=== PATIENT | female | born 1990 | race Asian ===

== ENCOUNTER 2023-09-20 05:41 | Inpatient (IN) ==
--- NOTE | 2023-09-15 11:48 | Anesthesiology Consultation ---
Date of Service September 15, 2023 Assessment & Plan (1) Encounter for pre-operative examination: Chart Review Chart Review: data entry specialist initiated Previous done due to previous finding of oligohydramnios and failure to progress and had an uncomplicated primary - Will leave BSG day of procedure to OB and anesthesiologist discretion -Infectious Disease screening: Per PAT nursing assessment on 09/15/23. No known infectious disease contacts in past 10 days or current infectious disease symptoms. No recent travel outside the country. History Surgery Operation Date: 09/20/23 07:30 Proposed Procedures p Section (Delivery of Baby Through Abdominal Incision) - Cornelio Ramirez MD, FACOG Height/Weight Height: 5 ft 6 in Weight: 144.242 kg Allergies Allergy/AdvReac Type Severity Reaction Status Date / Time Sulfa (Sulfonamide Allergy Severe Hives Verified 09/15/23 11:22 Antibiotics) Medications Home Medications Medication Instructions Recorded Confirmed Last Taken acetone (urine) test (Ketone Urine #50 ea 06/04/23 09/10/23 Unknown Test strips) blood sugar diagnostic (OneTouch #100 ea 06/04/23 09/10/23 Unknown Verio test strips) blood-glucose meter (OneTouch #1 ea 06/04/23 09/10/23 Unknown Verio Reflect Meter) blood-glucose sensor (Dexcom G7 #3 ea 06/04/23 09/10/23 Unknown Sensor device) lancets 33 gauge (OneTouch Delica #100 ea 06/04/23 09/10/23 Unknown Plus Lancet) pen needle, diabetic 32 gauge x #150 ea 06/18/23 09/10/23 Unknown /32" (BD Ultra-Fine Deyanira Pen Needle) insulin lispro 100 unit/mL See Rx Instructions subcut TID #15 09/14/23 09/15/23 Unknown subcutaneous pen (Humalog KwikPen mL (U-100) Insulin) Lactobacillus acidophilus 250 1,000 mmu cells PO DAILY 09/15/23 09/15/23 Unknown million cell capsule (Probiotic Acidophilus) docusate sodium 100 mg capsule 100 mg PO QAM 09/15/23 09/15/23 Unknown (Stool Softener) insulin NPH isoph U-100 human 100 15 unit subcut BID 09/15/23 09/15/23 Unknown unit/mL (3 mL) subcutaneous pen (Humulin N NPH U-100 Insulin KwikPen) vit no.133-ferrous 1 tab PO QAM 09/15/23 09/15/23 Unknown fumarate 28 mg-folic acid 800 mcg tablet () Past Medical History Medical History Gestational diabetes mellitus History of COVID-19 early 2022: cold symptoms Past Family History Family History Mother Diabetes Father Diabetes Other No family history of adverse response to anesthesia Denies family history of Ovarian cancer Breast cancer Colorectal cancer Past Surgical History Surgical History S/P section S/P tonsillectomy Status post ORIF of fracture of ankle left Social History Smoking Status: Never smoker Do You Dip or Chew Tobacco: No Hx Alcohol Use: No Hx Substance Use: No Lab Results Anesthesia Preop Results Results Anesthesia Widget: WBC 8.21 K/ul (4.8-10.8) 07/30/23 Hgb 12.3 g/dl (12.0-16.0) 07/30/23 Hct 38.5 % (37.0-47.0) 07/30/23 Plt 206 K/uL (130-400) 07/30/23
[2023-09-20] MEDS: LACTATED RINGER'S 1,000 ML IV SCH (06:04)
[2023-09-20 06:20] LABS: Basophils # (auto) 0.05 K/uL (0.00-0.20); Basophils % (auto) 0.7 %; Eosinophils # (auto) 0.14 K/uL (0.00-0.50); Eosinophils % (auto) 1.8 %; Hematocrit (blood only) 39.5 % (37.0-47.0); Hemoglobin 12.7 g/dl (12.0-16.0); Immature Granulocytes # (auto) 0.03 K/uL (0.01-0.20); Immature Granulocytes % (auto) 0.4 %; Lymphocytes % (auto) 31.7 %; Mean Corpuscular Hemoglobin 27.7 pg (25.0-34.0); Mean Corpuscular Hgb Conc 32.2 g/dL (32.0-36.0); Mean Corpuscular Volume 86.2 fL (80.0-100.0); Mean Platelet Volume 11.7 fL (9.4-12.4); Monocytes # (auto) 0.33 K/uL (0.11-0.59); Monocytes % (auto) 4.4 %; Neutrophils # (auto) 4.63 K/uL (1.40-6.50); Platelet Count 179 K/uL (130-400); RDW Coefficient of Variation 14.6 % (11.5-14.5); RDW Standard Deviation 45.9 fL (36.4-46.3); Red Blood Count 4.58 M/uL (4.20-5.40); White Blood Count 7.58 K/ul (4.8-10.8)
[2023-09-20] MEDS ORDERED: SODIUM CHLORIDE 0.9% 250 ML IV PRN (06:36)
[2023-09-20] MEDS ORDERED: OXYTOCIN 10 UNITS/ML VIAL ONE (06:41)
[2023-09-20] MEDS ORDERED: PHENYLEPHRINE 100MCG/ML 10ML SYR IV ONE (06:41)
[2023-09-20] MEDS ORDERED: fentaNYL citrate PF 100 MCG/2 ML VIAL ONE (06:42)
[2023-09-20] MEDS ORDERED: MoRPHine SULFATE PF 1 MG/ML 10 ML AMP/VIAL ONE (06:42)
--- NOTE | 2023-09-20 07:08 | History & Physical Report ---
Date of Service September 20, 2023 Assessment & Plan (1) Encounter for pre-operative examination: Plan: NICHOLE Calculator Estimated Delivery Date Method Current WG Current Estimate 09/24/23 Ultrasound #1 38w 4d Other Estimates 09/14/23 LMP (Certain) 40w 0d LMP: 12/08/22 : 2 Full term: 1 Premature: 0 Total Number of Induced Abortions: 0 Total Number of Spontaneous Abortions: 0 Ectopics: 0 Multiple births: 0 Number of Living Children: 1 and Delivery Plans GDM on insulin *Wkly NSTs @32wks and Twice wkly @36wks *Serial growth US @28wks *Deliver by EDC Previous *LTCS, op report on chart AMA Weekly NST's @ 36 weeks BMI 40 and Higher at Beginning of *Growth US at 32wks *NSTs at 34wks *BMI 40 offer [place] anatomy [place] [facility] [place]BMI 40 or greater offer delivery by [facility] Repeat section. The patient was counseled to the nature of the procedure including alternatives such as labor. Risks were discussed including bleeding infection injury to bowel bladder ureter vessels and even baby. The risks of internal organ injury were discussed as being higher with prior sections. Deep Vein Thrombosis, pulmonary embolus and breakdown of the incision discussed. Deep vein thrombosis pulmonary embolus hernia and failure of the incision to heal were discussed Patient verbalized understanding of this and was given ample time to ask questions Admission and Anticipated Discharge Date Admission Date: September 20, 2023 History of Present Illness Primary Care Provider: Sawyer Nix MD repeat c/s Allergies Allergy/AdvReac Type Severity Reaction Status Date / Time Sulfa (Sulfonamide Allergy Severe Hives Verified 09/20/23 06:06 Antibiotics) Home Medications Medication Instructions Recorded Confirmed Type acetone (urine) test (Ketone Urine #50 ea 06/04/23 09/10/23 Rx Test strips) blood sugar diagnostic (OneTouch #100 ea 06/04/23 09/10/23 Rx Verio test strips) blood-glucose meter (OneTouch #1 ea 06/04/23 09/10/23 Rx Verio Reflect Meter) blood-glucose sensor (Dexcom G7 #3 ea 06/04/23 09/10/23 Rx Sensor device) lancets 33 gauge (OneTouch Delica #100 ea 06/04/23 09/10/23 Rx Plus Lancet) pen needle, diabetic 32 gauge x #150 ea 06/18/23 09/10/23 Rx 5/32" (BD Ultra-Fine Deyanira Pen Needle) Lactobacillus acidophilus 250 1,000 mmu cells PO DAILY 09/15/23 09/15/23 History million cell capsule (Probiotic Acidophilus) docusate sodium 100 mg capsule 100 mg PO QAM 09/15/23 09/15/23 History (Stool Softener) insulin NPH isoph U-100 human 100 15 unit subcut BID 09/15/23 09/15/23 History unit/mL (3 mL) subcutaneous pen (Humulin N NPH U-100 Insulin KwikPen) vit no.133-ferrous 1 tab PO QAM 09/15/23 09/15/23 History fumarate 28 mg-folic acid 800 mcg tablet () insulin lispro 100 unit/mL See Rx Instructions subcut TID #15 09/16/23 Rx subcutaneous pen (Humalog KwikPen mL (U-100) Insulin) Patient History Medical History Gestational diabetes mellitus History of COVID-19 early 2022: cold symptoms Surgical History S/P section S/P tonsillectomy Status post ORIF of fracture of ankle left Family History Mother Diabetes Father Diabetes Other No family history of adverse response to anesthesia Denies family history of Ovarian cancer Breast cancer Colorectal cancer Social History (Updated 01/27/23 @ 13:14 by Imelda Welsh) Smoking Status: Never smoker Second Hand Exposure: No; Do You Dip or Chew Tobacco: No; Tobacco Cessation Education Requested by Patient: No Hx Alcohol Use: No Hx Substance Use: No Preferred Language: Albanian Communication Ability: Effective Ink Grinder Required: No Beliefs That Will Affect Care: None marital status: marital status details: Roly Friedmannimo (34) [phone] Current Living Situation: Spouse and Family Current Living Situation Comment: 3 year old son "Juan" and current occupational status: employed current occupation: Batching Operator Other Information That Helps Us Care for You: No Feels Safe at Home: Yes Safety Concerns: Feels Safe At This Time Assistive Devices: None Physical Exam Constitutional: WD/WN, vitals as above well developed and well nourished Respiratory: normal respiratory effort, lungs clear to auscultation normal respiratory effort Cardiovascular: RRR, no murmur, no edema Gastrointestinal (Abdomen): normal bowel sounds, soft, nontender, no hepatosplenomegaly Results & Data Vital Signs (Past 12 Hours) Vital Signs Temp Pulse Resp BP 09/20/23 07:02 65 129/83 09/20/23 06:09 98.6 F 68 18 119/82 09/20/23 06:03 98.6 F 68 18 119/82 Coding Level of Care Code None Diagnoses Encounter for pre-operative examination Z01.818
[2023-09-20] MEDS ORDERED: ePHEDrine sulfate 50 MG/ML AMP IV PRN (07:13)
[2023-09-20] MEDS ORDERED: MoRPHine SULFATE PF 1 MG/ML 10 ML AMP/VIAL INT SPINAL ONE (07:13)
[2023-09-20] MEDS ORDERED: ONDANSETRON INJ 2 MG/ML 2 ML VIAL IV PRN (07:13)
[2023-09-20] MEDS ORDERED: LACTATED RINGER'S 500 ML IV PRN (07:13)
[2023-09-20] MEDS ORDERED: diphenhydrAMINE 50 MG/ML VIAL IV PRN (07:13)
[2023-09-20] MEDS ORDERED: NALOXONE HCL 1 MG in SODIUM CHLORIDE 0.9% 1,000 ML IV PRN (07:13)
[2023-09-20] MEDS ORDERED: NALOXONE HCL 0.08 MG in SYRINGE 1.8 ML IV PRN (07:13)
[2023-09-20] MEDS ORDERED: MoRPHine SULFATE 2 MG/ML CARP IV PRN (07:13)
[2023-09-20] MEDS ORDERED: HYDROmorphone INJ 0.5 MG/0.5 ML SYR IV PRN (07:13)
[2023-09-20] MEDS ORDERED: NALBUPHINE HCL 5 MG in SYRINGE 0 ML IV PRN (07:13)
[2023-09-20] MEDS ORDERED: NALOXONE HCL 0.4 MG/1 ML VIAL/CARP IV PRN (07:13)
[2023-09-20] MEDS ORDERED: DC INTRASPINAL MORPHINE SCH (07:15)
[2023-09-20] MEDS ORDERED: SODIUM CHLORIDE 0.9% 1,000 ML IV SCH (07:15)
[2023-09-20] MEDS ORDERED: NO NARCOTICS OR SEDATIVES SCH (07:15)
[2023-09-20] MEDS: CITRIC ACID/SODIUM CITRATE 15 ML UDC PO SCH (07:35)
[2023-09-20] MEDS: DEXTROSE 50% 50 ML SYRINGE IV ONE ×2 (07:36→09:42)
[2023-09-20] MEDS: ceFAZolin 3,000 MG in DEXTROSE 5% 50 ML IV SCH (07:38)
[2023-09-20] MEDS ORDERED: ePHEDrine sulfate 50 MG/5 ML SYR ONE (08:25)
[2023-09-20] MEDS ORDERED: ONDANSETRON INJ 2 MG/ML 2 ML VIAL ONE (08:44)
--- NOTE | 2023-09-20 09:15 | Operative Report ---
PG Post Operative Report Pre & Post Diagnosis Operation Date: 09/20/23 07:30 Repeat section at 39 completed weeks gestational diabetes on insulin I identified the patient and participated in the time-out.: Yes Procedure Operation Date: 09/20/23 07:30 Low segment transverse section Surgeon Cornelio Ramirez MD, FACOG [employer] Sergeant Dr. Torres Estimated Blood Loss 600 Findings Consistent with Post-Op Diagnosis Specimens Cord blood Cord gases Description of Procedure Regional anesthetic had been given by anesthesia patient was prepped and draped with a leftward tilt preoperative antibiotics had been given in appropriate timing by anesthesiology. Once the prep was allowed to fully dry timeout was performed. Pickups with teeth were used to test the incision area was found to be adequate for incision as the patient did not feel sharp pain. Scalpel was used to make a Pfannenstiel incision on the lower abdomen. We then cut through the subcutaneous fat down to the level of the anterior rectus sheath fascia this was cut in the midline and then extended laterally with the curved Rivera scissors. At this stage we then placed 2 Kevin clamps on the anterior aspect of the fascia. Using the curved Rivera's we are able to dissect the fascia superiorly away from the rectus muscles. Care was taken to maintain hemostasis. Kevin clamps were then placed to the inferior aspect of the anterior sheath of the fascia. Fascia was then dissected away from the rectus muscles inferiorly towards the pubic bone. A Kevin was then placed in the midline both inferiorly and superiorly. This was to allow exposure by retraction rectus muscles were in the midline with were then able to cut through the peritoneum and then enter the peritoneal cavity. Opening was enlarged to allow exposure of the peritoneal cavity both superiorly and inferiorly. Some minimal adhesions of the omentum were dissected away with Metzenbaums to the bladder, once adequate space was obtained a bladder retractor was placed to expose the lower segment Metzenbaums were used to dissect the bladder flap inferiorly away from the uterus. This was done sharply bladder retractor was then repositioned to expose the lower segment of the uterus Fresh scalpel was used to make a low transverse incision on the uterus. Uterus was then entered bluntly with the operators finger, membranes ruptured and the opening was enlarged using the operators fingers bluntly pulling superiorly and inferiorly to allow exposure. Note thin meconium and loose nuchal cord which was passed over the baby's head Baby was delivered by first flexion of the head elevation of the head out of the pelvis and then pressure by the assistant property manager on the maternal abdomen. Baby's head was then delivered mouth and then nares were suctioned and then using gentle traction the baby was fully delivered. Live vigorous . Fluid was clear cord clamped and cut cord gases obtained cord blood obtained baby handed to pediatrics. Placenta removed was removed with traction we ensure the entire placenta was removed with a moist lap sponge into the uterus Uterus was then exteriorized. IV Pitocin had been started by anesthesia tone improved there were no extensions the uterus was then closed using 0 Monocryl in a 2 layer closure the first layer closed in a running locked fashion from left to right and then a second closure from left to right in a running nonlocked fashion. At this stage hemostasis was excellent. Uterus was placed back in the peritoneal cavity with suction irrigation out and inspection of the uterus at this stage revealed excellent hemostasis Retractors were removed urine color was clear at this stage of the case we inspected the rectus muscles they were hemostatic fascia was closed with 0 Vicryl subcutaneous fat was irrigated and closed with 3-0 Vicryl skin closed with 4-0 subcuticular Monocryl jacob dressing was applied Findings vigorous male infant normal uterus uterine cavity and adnexa I attest to the content of the Intraoperative Record and any orders documented therein. Any exceptions are noted below. OB Procedure Charges 91234
[2023-09-20] MEDS ORDERED: SENNA 8.6 MG TAB PO PRN (09:26)
[2023-09-20] MEDS ORDERED: MAGNESIUM HYDROXIDE SUSP 30 ML UDC PO PRN (09:26)
[2023-09-20] MEDS ORDERED: BENZOCAINE 20% SPRY 85 APPLN/85 GM CAN EXT PRN (09:26)
[2023-09-20] MEDS ORDERED: HYDROCORTISONE ACETATE 25 MG SUPP PR PRN (09:26)
[2023-09-20] MEDS ORDERED: DIPHTHER/TETAN/PERTUS Vaccine (Tdap, Adol/Adult) 0.5mL IM ONE (09:26)
[2023-09-20] MEDS ORDERED: LACTATED RINGER'S 1,000 ML IV SCH (09:26)
[2023-09-20] MEDS: OXYTOCIN 20 UNITS/LR 1,002 ML IV SCH (11:00)
--- NOTE | 2023-09-20 12:02 | Anesthesiology Progress Note ---
Date of Service September 20, 2023 Anesthesia Post Procedure Vital Signs Vital Signs: Temp Pulse Pulse Resp BP BP Pulse Ox 09/20/23 11:40 36.4 C L 95 H 16 103/68 99 09/20/23 11:03 16 09/20/23 10:58 66 99/55 L 09/20/23 10:57 66 99 09/20/23 10:53 62 105/58 L 09/20/23 10:52 76 99 09/20/23 10:47 71 99 09/20/23 10:43 76 103/56 L 09/20/23 10:42 76 99 09/20/23 10:37 68 98 09/20/23 10:33 20 09/20/23 10:33 68 108/59 L 09/20/23 10:32 73 97 09/20/23 10:27 64 96 09/20/23 10:24 69 126/55 L 09/20/23 10:22 70 96 09/20/23 10:17 70 95 09/20/23 10:13 78 92/63 L 09/20/23 10:12 79 95 09/20/23 10:07 65 95 09/20/23 10:03 36.5 C 20 09/20/23 10:03 71 100/60 09/20/23 10:02 74 95 09/20/23 09:57 71 94 09/20/23 09:53 16 09/20/23 09:53 70 107/54 L 09/20/23 09:52 64 94 09/20/23 09:47 89 94 09/20/23 09:43 20 09/20/23 09:43 68 108/66 09/20/23 09:42 66 94 09/20/23 09:37 69 94 09/20/23 09:33 18 09/20/23 09:33 150 H 112/60 09/20/23 09:32 77 94 09/20/23 09:27 72 94 09/20/23 09:24 80 113/61 09/20/23 09:23 18 09/20/23 09:22 71 94 09/20/23 09:17 78 95 09/20/23 09:13 18 09/20/23 09:13 82 97/63 L 09/20/23 09:12 76 95 09/20/23 09:07 67 95 09/20/23 09:02 36.4 C L 20 09/20/23 09:02 70 97/71 L 95 09/20/23 07:29 20 09/20/23 07:29 36.6 C 20 09/20/23 07:02 65 129/83 09/20/23 06:09 37.0 C 68 18 119/82 09/20/23 06:03 37.0 C 68 18 119/82 O2 Del Method 09/20/23 11:40 Room Air 09/20/23 11:03 09/20/23 10:58 09/20/23 10:57 09/20/23 10:53 09/20/23 10:52 09/20/23 10:47 09/20/23 10:43 09/20/23 10:42 09/20/23 10:37 09/20/23 10:33 09/20/23 10:33 09/20/23 10:32 09/20/23 10:27 09/20/23 10:24 09/20/23 10:22 09/20/23 10:17 09/20/23 10:13 09/20/23 10:12 09/20/23 10:07 09/20/23 10:03 09/20/23 10:03 09/20/23 10:02 09/20/23 09:57 09/20/23 09:53 09/20/23 09:53 09/20/23 09:52 09/20/23 09:47 09/20/23 09:43 09/20/23 09:43 09/20/23 09:42 09/20/23 09:37 09/20/23 09:33 09/20/23 09:33 09/20/23 09:32 09/20/23 09:27 09/20/23 09:24 09/20/23 09:23 09/20/23 09:22 09/20/23 09:17 09/20/23 09:13 09/20/23 09:13 09/20/23 09:12 09/20/23 09:07 09/20/23 09:02 09/20/23 09:02 09/20/23 07:29 09/20/23 07:29 09/20/23 07:02 09/20/23 06:09 09/20/23 06:03 Transfer of Care Handoff Completed per policy Notes Mental Status: alert / awake / arousable and participated in evaluation Patient Amnestic to Procedure: Yes Nausea / Vomiting: adequately controlled Pain: adequately controlled Airway Patency, RR, SpO2: stable & adequate BP & HR: stable & adequate Hydration State: stable & adequate Neuraxial Anesthesia: was administered and sensory block is resolving Anesthetic Complications: no major complications apparent and Pt Satisfied with anesthetic care
[2023-09-20] MEDS: SIMETHICONE 80 MG CHEW PO SCH (15:11)
[2023-09-20] MEDS: KETOROLAC 30 MG/ML VIAL IV PRN (15:15)
[2023-09-20] MEDS: DOCUSATE SODIUM 100 MG CAP PO SCH (20:21)
[2023-09-21] MEDS ORDERED: PROMETHAZINE HCL 25 MG in SODIUM CHLORIDE 0.9% 50 ML IV PRN (01:15)
[2023-09-21] MEDS ORDERED: ONDANSETRON INJ 2 MG/ML 2 ML VIAL IV PRN (01:15)
[2023-09-21] MEDS ORDERED: KETOROLAC 30 MG/ML VIAL IV PRN (01:15)
[2023-09-21] MEDS ORDERED: diphenhydrAMINE Capsule 25 MG CAP PO PRN (01:15)
[2023-09-21] MEDS ORDERED: diphenhydrAMINE 50 MG/ML VIAL IV PRN (01:15)
[2023-09-21] MEDS: IBUPROFEN 600 MG TAB PO PRN (02:07)
[2023-09-21] MEDS: oxyCODONE/ACETAMINOPHEN 5mg/325mg TAB PO PRN (02:07)
[2023-09-21 06:26] LABS: Basophils # (auto) 0.04 K/uL (0.00-0.20); Basophils % (auto) 0.4 %; Eosinophils # (auto) 0.15 K/uL (0.00-0.50); Eosinophils % (auto) 1.6 %; Hematocrit (blood only) 35.7 % (37.0-47.0); Hemoglobin 11.8 g/dl (12.0-16.0); Immature Granulocytes # (auto) 0.03 K/uL (0.01-0.20); Immature Granulocytes % (auto) 0.3 %; Lymphocytes # (auto) 2.21 K/uL (1.20-3.40); Lymphocytes % (auto) 23.5 %; Mean Corpuscular Hemoglobin 27.8 pg (25.0-34.0); Mean Corpuscular Hgb Conc 33.1 g/dL (32.0-36.0); Mean Platelet Volume 11.4 fL (9.4-12.4); Monocytes # (auto) 0.35 K/uL (0.11-0.59); Monocytes % (auto) 3.7 %; Neutrophils # (auto) 6.63 K/uL (1.40-6.50); Neutrophils % (auto) 70.5 %; Platelet Count 166 K/uL (130-400); RDW Coefficient of Variation 14.8 % (11.5-14.5); RDW Standard Deviation 44.8 fL (36.4-46.3); Red Blood Count 4.25 M/uL (4.20-5.40); White Blood Count 9.41 K/ul (4.8-10.8)
--- NOTE | 2023-09-21 07:37 | Obstetrical Progress Note ---
Date of Service September 21, 2023 Assessment & Plan (1) Encounter for care and examination after delivery: Plan Continue ibuprofen and Percocet as needed for pain management Encourage ambulation Continue work with senior microsoft consultant for Continue care Admission and Anticipated Discharge Date Admission Date: September 20, 2023 Supervising Physician Co-Signing Physician Notes Resident Physician Supervision Note: I interviewed and examined the patient. Discussed with Dr. Dias of resident and agree with findings and plan as documented in the note. Any exceptions or clarifications are listed here: [None] Documented By: Lachelle Torres MD Subjective 30 yo now post day 1 s/p c section on 08/20/2023 was complicated gestational diabetes controlled by insulin Glucose overnight 84 Hgb low this morning at 11.8 Hct 35.7 Rubella immune Rh positive Pain well controlled with ibuprofen and Percocet, ambulating well No flatus, bowl movement, no voiding yet, martinez catheter removed this morning Denies Headache, chest pain, shortness of breath, nausea vomiting Review of Systems Review of Systems: All systems reviewed & are unremarkable except as noted in HPI & below Physical Exam Constitutional: WD/WN, vitals as above no acute distress Respiratory: normal respiratory effort, lungs clear to auscultation Cardiovascular: regular rate and rhythm, no edema Gastrointestinal (Abdomen): normal bowel sounds, soft, nontender, no hepatosplenomegaly Skin: Warm, dry, pink Genitourinary: Uterine fundus firm at umbilicus, incision w/o erythema, bleeding covered with GILSON dressing Results & Data Vital Signs (Past 12 Hours) Vital Signs Temp Pulse Resp BP Pulse Ox O2 Del Method 09/21/23 04:00 36.9 C 69 18 106/71 98 Room Air 09/21/23 01:30 18 99 09/21/23 00:30 20 98 09/20/23 23:19 18 100 09/20/23 23:00 36.6 C 83 20 103/72 100 Room Air 09/20/23 22:30 18 98 09/20/23 21:30 20 100 09/20/23 20:30 20 99 09/20/23 19:25 18 98 09/20/23 19:25 Room Air 09/20/23 19:25 36.9 C 85 18 103/70 100 Room Air
--- NOTE | 2023-09-21 07:41 | Obstetrical Progress Note ---
Date of Service September 21, 2023 Assessment & Plan (1) Encounter for care and examination after delivery: 33 [facility], doing well -Needs to void and pass gas but meeting all other milestones -Rh+/rubella immune/ -f/u 6 weeks for appt, continue routine care Subjective Ambulation: ambulating normally Passing Gas:: No Diet Tolerance:: regular diet Lochia:: Small Feeding Type:: breast feeding Pain well managed with medication, not yet voided Review of Systems Denies fevers, chills, n/v, ANTONIO, CP, SOB Physical Exam Constitutional WD/WN, vitals as above no acute distress Respiratory normal respiratory effort, lungs clear to auscultation Cardiovascular RRR, no murmur, no edema Gastrointestinal (Abdomen) Percussion/Palpation: abdomen soft; abdomen nontender fundus firm at umbilicus and NT. jacob dressing c/d/i Musculoskeletal BLE symmetric, nonerythematous, nontender Results & Data Vital Signs (Past 12 Hours) Vital Signs Temp Pulse Resp BP Pulse Ox O2 Del Method 09/21/23 04:00 98.4 F 69 18 106/71 98 Room Air 09/21/23 01:30 18 99 09/21/23 00:30 20 98 09/20/23 23:19 18 100 09/20/23 23:00 97.9 F 83 20 103/72 100 Room Air 09/20/23 22:30 18 98 09/20/23 21:30 20 100 09/20/23 20:30 20 99
[2023-09-21] MEDS: FERROUS SULFATE 325 MG TAB PO SCH (07:47)
[2023-09-21] MEDS: PRENATAL VITAMIN 1 TAB PO SCH (07:47)
[2023-09-21] MEDS: CALCIUM CARBONATE 500 MG CHEWABLE TAB PO PRN (16:32)
[2023-09-21] MEDS: bisacodyL 5 MG TABEC PO SCH (20:14)
[2023-09-22 07:07] LABS: Hematocrit (blood only) 32.6 % (37.0-47.0); Hemoglobin 10.8 g/dl (12.0-16.0)
[2023-09-22] MEDS: bisacodyL 5 MG TABEC PO ONE (07:53)
--- NOTE | 2023-09-22 07:58 | Obstetrical Progress Note ---
Date of Service September 22, 2023 Assessment & Plan (1) Encounter for care and examination after delivery: Plan Continue ibuprofen as needed for pain management Encourage ambulation Continue work with loss control consultant for Continue care Discharge instructions discussed Discharge to home f/u in 6 weeks Admission and Anticipated Discharge Date Admission Date: September 20, 2023 Supervising Physician Co-Signing Physician Notes Resident Physician Supervision Note: I interviewed and examined the patient. Discussed with medical student and agree with findings and plan as documented in the note. Any exceptions or clarifications are listed here: See progress note documentation. Documented By: Rosetta Palacios, Subjective 30 yo now post day 2 s/p c section on 08/20/2023 was complicated gestational diabetes controlled by insulin Glucose overnight spiked to 220 Pain well controlled with ibuprofen and Percocet, ambulating well Flatus and bowl movement yesterday, voiding Denies Headache, chest pain, shortness of breath, nausea vomiting Review of Systems Review of Systems: as per hpi Physical Exam Constitutional: WD/WN, vitals as above no acute distress Respiratory: normal respiratory effort, lungs clear to auscultation Gastrointestinal (Abdomen): normal bowel sounds, soft, nontender, no hepatosplenomegaly (fundus firm at umbilicus and NT. jacob dressing c/d/i) Results & Data Vital Signs (Past 12 Hours) Vital Signs Temp Pulse Resp BP Pulse Ox O2 Del Method 09/21/23 23:35 36.7 C 86 18 101/70 97 Room Air 09/21/23 20:30 36.8 C 89 20 126/83 99 Room Air
--- NOTE | 2023-09-22 08:03 | Obstetrical Progress Note ---
Date of Service September 22, 2023 Assessment & Plan (1) Encounter for care and examination after delivery: Plan Continue ibuprofen as needed for pain management Encourage ambulation Continue work with technology methodology consultant for Continue care Discharge instructions discussed Discharge to home f/u in 6 weeks Admission and Anticipated Discharge Date Admission Date: September 20, 2023 Supervising Physician Co-Signing Physician Notes Resident Physician Supervision Note: I was present with Dr. Spike Albarado during the history and exam. I discussed the case with the resident and agree with the findings and plan as documented in the note. Any exceptions or clarifications are listed here: POD#2 doing well. Reviewed DC instructions. GILSON removal on Wednesday in office. Rx Percocet #[address] [facility] [place]. Documented By: Rosetta Palacios, DO Subjective 30 yo now post day 2 s/p c section on 08/20/2023 Ambulation: ambulating normally Voiding: no voiding problems Passing Gas:: Yes Diet Tolerance:: regular diet Lochia:: Small Feeding Type:: bottle feeding and breast feeding Current Pain Level: minimal, controlled with pain meds Resting comfortably this AM in NAD. Denies ANTONIO, CP, SOB, N/V/D, LE pain/swelling. Review of Systems Review of Systems: All systems reviewed & are unremarkable except as noted in HPI & below Physical Exam Physical Exam: Constitutional: WD/WN, vitals as a lorene no acute dis tress Respiratory: normal respiratory effort, lungs janet ar to auscultation Gastrointestinal ( Abdomen): normal bowel sound s, soft, nontender , no hepatosplenom egaly (fundus firm at umbilicus and NT. gilson dressing c/d/i Results & Data Vital Signs (Past 12 Hours) Vital Signs Temp Pulse Resp BP Pulse Ox O2 Del Method 09/21/23 23:35 36.7 C 86 18 101/70 97 Room Air 09/21/23 20:30 36.8 C 89 20 126/83 99 Room Air Resident Activity Tracking Resident Involvement: Resident Care Provided Care Provided: OB Delivery
[2023-09-22] MEDS ORDERED: bisacodyL 10 MG SUPP PR PRN (09:10)
--- NOTE | 2023-09-24 19:59 | Discharge Summary ---
Date of Service September 24, 2023 Admission HPI Per Admitting Provider repeat c/s Admission Exam (Per Admitting) Constitutional WD/WN, vitals as above well developed and well nourished Respiratory normal respiratory effort, lungs clear to auscultation normal respiratory effort Cardiovascular RRR, no murmur, no edema Gastrointestinal (Abdomen) normal bowel sounds, soft, nontender, no hepatosplenomegaly Discharge Data Consultations 09/20/23 05:43 Consult Anesthesiology Stat Procedures Performed Operation Date: 09/20/23 07:30 Actual Procedures p Section in LD for viable male infant at 0815 - J. Ramon Ramirez MD, [facility] Course (1) Encounter for care and examination after delivery: Plan Continue ibuprofen as needed for pain management Encourage ambulation Continue work with financial management consultant for Continue care Discharge instructions discussed Discharge to home f/u in 6 weeks Supervising Physician Co-Signing Physician Notes Resident Physician Supervision Note: I was present with Dr. Spike Albarado during the history and exam. I discussed the case with the resident and agree with the findings and plan as documented in the note. Any exceptions or clarifications are listed here: POD#2 doing well. Reviewed DC instructions. GILSON removal on Wednesday in office. Rx Percocet #[address] [facility] [place]. Documented By: Rosetta Palacios DO Coding Level of Care Code None Diagnoses Encounter for care and examination after delivery Z39.2
== END 2023-09-22 12:20 | disposition home or self-care (01) | DRG 788 ==
LOC: 4S1 05:41 → EDSTATUS 07:30 → 4E2 11:03
DX: Z79.899 Other long term (current) drug therapy; Z83.3 Family history of diabetes mellitus; O09.523 Supervision of elderly multigravida, third trimester; Z88.2 Allergy status to sulfonamides; Z37.0 Single live birth; O24.424 Gestational diabetes mellitus in childbirth, insulin controlled; O77.0 Labor and delivery complicated by meconium in amniotic fluid; O69.81X0 Labor and delivery complicated by cord around neck, without compression, not applicable or unspecified; O34.211 Maternal care for low transverse scar from previous cesarean delivery; Z3A.39 39 weeks gestation of pregnancy